=== PATIENT | female | born 1965 | race Caucasian/White ===

== ENCOUNTER 2019-09-10 09:54 | Observation (INO) ==
[2019-09-10 10:54] LABS: Hematocrit 45.4 % (35.3-44.9); Hemoglobin 15.7 g/dL (11.5-15.4); Mean Corpuscular HGB Conc 34.6 g/dL (31.6-35.5); Mean Corpuscular Hemoglobin 31.3 pg (28.0-33.3); Mean Corpuscular Volume 90.4 fL (83.0-100.0); Mean Platelet Volume 9.3 fL (9.4-12.4); Platelet Count 354 K/mcL (140-400); Red Blood Count 5.02 M/mcL (3.82-4.97); Red Cell Distribution Width 13.3 % (11.5-14.5); White Blood Count 13.1 K/mcL (4.3-11.1)
[2019-09-10 11:17] LABS: BUN/Creatinine Ratio 24 (6-26); Blood Urea Nitrogen 15 mg/dL (6-20); Calcium 8.9 mg/dL (8.6-10.3); Carbon Dioxide 30 mEq/L (23-29); Chloride 102 mEq/L (98-107); Glucose 145 mg/dL (70-105); Osmolality,Calculated 291 (280-300); Potassium 3.2 mEq/L (3.5-5.1); Sodium 139 mEq/L (136-145); eGFR For African Americans > 60 (> 60); eGFR For Non-African Americans > 60 (> 60)
[2019-09-10 11:22] LABS: Troponin I 0.08 ng/mL (< 0.04)
[2019-09-10] MEDS ORDERED: Aspirin 325 MG TABLET PO ONE (11:28)
[2019-09-10] MEDS ORDERED: Ondansetron 4 MG/2 ML VIAL IVP PRN (11:55)
[2019-09-10] MEDS ORDERED: *HR* Heparin 5,000 UNIT/ML VIAL IVP ONE ×2 (11:59→12:50)
[2019-09-10] MEDS ORDERED: *HR* Heparin 5,000 UNIT/ML VIAL IVP PRN ×3 (11:59→12:50)
[2019-09-10] MEDS ORDERED: Heparin 25,000 UNIT/250 ML D5W 25,000 UNIT/250 ML IV.SOLN IVC SCH (12:00)
[2019-09-10] MEDS ORDERED: Azithromycin 250 MG TABLET PO SCH (12:15)
[2019-09-10 13:54] LABS: Estimated Average Glucose 137 mg/dl
[2019-09-10] MEDS ORDERED: amLODIPine 5 MG TABLET PO ONE (15:00)
[2019-09-10] MEDS: Azithromycin 250 MG TABLET PO SCH (15:33)
[2019-09-10] MEDS: Heparin 25,000 UNIT/250 ML D5W 25,000 UNIT/250 ML IV.SOLN IVC SCH (15:38)
[2019-09-10] MEDS: *HR* Heparin 5,000 UNIT/ML VIAL IVP PRN (23:05)
[2019-09-11 02:01] LABS: Basophils # 0.1 K/mcL (0.0-0.2); Basophils % 0.6 %; Eosinophils # 0.3 K/mcL (0.0-0.6); Eosinophils % 2.2 %; Hematocrit 41.8 % (35.3-44.9); Immature Granulocytes % 0.6 % (0-4); Lymphocytes # 3.5 K/mcL (0.6-4.6); Lymphocytes % 27.3 %; Mean Corpuscular HGB Conc 32.8 g/dL (31.6-35.5); Mean Corpuscular Volume 94.6 fL (83.0-100.0); Mean Platelet Volume 9.7 fL (9.4-12.4); Monocytes % 7.4 %; Neutrophils # 7.9 K/mcL (1.6-8.9); Platelet Count 359 K/mcL (140-400); Red Blood Count 4.42 M/mcL (3.82-4.97); Red Cell Distribution Width 13.3 % (11.5-14.5); Segmented Neutrophils % 61.9 %; White Blood Count 12.8 K/mcL (4.3-11.1)
[2019-09-11 02:06] LABS: Hemoglobin 13.7 g/dL (11.5-15.4)
[2019-09-11 02:13] LABS: BUN/Creatinine Ratio 32 (6-26); Blood Urea Nitrogen 22 mg/dL (6-20); Calcium 9.4 mg/dL (8.6-10.3); Carbon Dioxide 27 mEq/L (23-29); Chloride 103 mEq/L (98-107); Glucose 128 mg/dL (70-105); Osmolality,Calculated 295 (280-300); Potassium 3.4 mEq/L (3.5-5.1); Sodium 140 mEq/L (136-145); eGFR For African Americans > 60 (> 60); eGFR For Non-African Americans > 60 (> 60)
[2019-09-11] MEDS: *HR* Heparin 5,000 UNIT/ML VIAL IVP PRN (06:07)
[2019-09-11] MEDS ORDERED: amLODIPine 5 MG TABLET PO SCH (09:00)
[2019-09-11] MEDS: Azithromycin 250 MG TABLET PO SCH (09:34)
[2019-09-11] MEDS: Heparin 25,000 UNIT/250 ML D5W 25,000 UNIT/250 ML IV.SOLN IVC SCH (12:03)
[2019-09-11] MEDS: Valsartan 80 MG TABLET PO SCH (12:06)
[2019-09-11] MEDS ORDERED: Menthol 9.1 MG LOZENGE PO PRN (19:18)
[2019-09-12] MEDS: Heparin 25,000 UNIT/250 ML D5W 25,000 UNIT/250 ML IV.SOLN IVC SCH (06:41)
[2019-09-12 09:13] LABS: BUN/Creatinine Ratio 26 (6-26); Blood Urea Nitrogen 16 mg/dL (6-20); Calcium 9.2 mg/dL (8.6-10.3); Carbon Dioxide 29 mEq/L (23-29); Chloride 101 mEq/L (98-107); Glucose 130 mg/dL (70-105); Osmolality,Calculated 291 (280-300); Phosphorous 3.5 mg/dL (2.7-4.5); Potassium 3.9 mEq/L (3.5-5.1); Sodium 139 mEq/L (136-145); eGFR For African Americans > 60 (> 60); eGFR For Non-African Americans > 60 (> 60)
[2019-09-12] MEDS: Valsartan 80 MG TABLET PO SCH (09:25)
[2019-09-12] MEDS: Azithromycin 250 MG TABLET PO SCH (09:25)
[2019-09-12] MEDS: *HR* Heparin 5,000 UNIT/ML VIAL IVP PRN (23:12)
[2019-09-12] MEDS ORDERED: Heparin 25,000 UNIT/250 ML D5W 25,000 UNIT/250 ML IV.SOLN IVC SCH (23:15)
[2019-09-13 05:20] LABS: Basophils # 0.1 K/mcL (0.0-0.2); Basophils % 0.8 %; Eosinophils # 0.3 K/mcL (0.0-0.6); Eosinophils % 2.4 %; Hematocrit 44.7 % (35.3-44.9); Hemoglobin 14.7 g/dL (11.5-15.4); Immature Granulocytes % 0.7 % (0-4); Lymphocytes # 3.2 K/mcL (0.6-4.6); Lymphocytes % 24.8 %; Mean Corpuscular HGB Conc 32.9 g/dL (31.6-35.5); Mean Corpuscular Hemoglobin 31.1 pg (28.0-33.3); Mean Corpuscular Volume 94.5 fL (83.0-100.0); Mean Platelet Volume 9.4 fL (9.4-12.4); Monocytes # 0.7 K/mcL (0.0-1.3); Monocytes % 5.7 %; Neutrophils # 8.4 K/mcL (1.6-8.9); Platelet Count 325 K/mcL (140-400); Red Blood Count 4.73 M/mcL (3.82-4.97); Red Cell Distribution Width 13.3 % (11.5-14.5); Segmented Neutrophils % 65.6 %; White Blood Count 12.8 K/mcL (4.3-11.1)
[2019-09-13 05:42] LABS: BUN/Creatinine Ratio 28 (6-26); Blood Urea Nitrogen 20 mg/dL (6-20); Calcium 9.1 mg/dL (8.6-10.3); Carbon Dioxide 28 mEq/L (23-29); Chloride 102 mEq/L (98-107); Glucose 121 mg/dL (70-105); Osmolality,Calculated 292 (280-300); Potassium 3.5 mEq/L (3.5-5.1); Sodium 139 mEq/L (136-145); eGFR For African Americans > 60 (> 60); eGFR For Non-African Americans > 60 (> 60)
[2019-09-13] MEDS: *HR* Heparin 5,000 UNIT/ML VIAL IVP PRN (06:17)
[2019-09-13] MEDS ORDERED: Verapamil 5 MG/2 ML VIAL ONE (09:07)
[2019-09-13] MEDS ORDERED: ISOVUE-370 200 ML INFUS..BTL ONE (09:08)
[2019-09-13] MEDS ORDERED: Nitroglycerin 1,000 MCG/10 ML VIAL IV ONE (09:08)
[2019-09-13] MEDS ORDERED: Heparin 1,000 UNITS/500 mL 500 ML ONE (09:08)
[2019-09-13] MEDS ORDERED: *HR* Midazolam HCl 2 MG/2 ML VIAL ONE ×2 (09:08→09:34)
[2019-09-13] MEDS ORDERED: *HR* Heparin 10,000 UNIT/10 ML VIAL ONE (09:08)
[2019-09-13] MEDS ORDERED: 0.9 % Sodium Chloride 2,000 ML ONE (09:08)
[2019-09-13] MEDS ORDERED: *HR* FentaNYL (PF) 100 MCG/2 ML VIAL ONE (09:08)
[2019-09-13] MEDS: Valsartan 80 MG TABLET PO SCH (12:07)
[2019-09-13] MEDS: Azithromycin 250 MG TABLET PO SCH (12:07)
[2019-09-13 12:58] VITALS: BP 101/64
[2019-09-14] MEDS ORDERED: Aspirin Enteric Coated 81 MG Tablet PO SCH (09:00)
== END 2019-09-13 14:29 | disposition home or self-care (01) ==
LOC: 2ANU 09:54 → EMEROOARM 09:54 → SUATTDRO 12:12 → 2ANU 12:55
PROVIDERS: ADMIT Internal Medicine; ATTEND Internal Medicine